=== PATIENT | female | born 1980 | race Caucasian/White ===

== ENCOUNTER 2019-09-08 17:23 | Emergency (ER) | payer OTHER, SELFPAY ==
--- NOTE | ~2019-09-08 | XR_ITS ---
EXAMINATION: XR ankle RT min 3V EXAM DATE: 09/08/2019 18:04 INDICATION: Initial encounter following injury, with pain of the right ankle. TECHNIQUE: Right ankle frontal, lateral and oblique projections obtained and reviewed. Comparison is made to prior examination from 10/26/2010. FINDINGS: The right ankle mortise appears intact. There are no acute fractures or dislocations iden tified. There is no subcutaneous gas. The soft tissue is unremarkable. There are no radiopaque fo reign bodies. IMPRESSION: No acute osseous findings. Reviewed, dictated and finalized at location A. IMPRESSION: No acute osseous findings.
--- NOTE | 2019-09-08 17:38 | ED.LOWEXIN ---
HPI - Extremity Injury (Lower) General Chief Complaint: Extremity Injury, Lower Stated Complaint: right foot pain Time Seen by Provider: 09/08/19 17:38 Source: patient and RN notes reviewed History of Present Illness HPI Narrative: Patient is a 39-year-old female that presents the urgent care with complaints of a right ankle injury. Patient states that she stepped over a gate on Sunday and believes that she rolled her ankle . Patient states that the pain and swelling started today after driving a significant amount of time. Patient has taken ibuprofen. No other acute complaints. No acute distress noted. Patient read the plan of care. Related Data Home Medications Medication Instructions Recorded Confirmed fluticasone furoate-vilanterol 1 inh INHALATION DAILY 05/13/19 09/08/19 [Breo Ellipta] gabapentin 300 mg TID 05/13/19 09/08/19 sertraline 100 mg DAILY 05/13/19 09/08/19 trazodone 150 mg HS 05/13/19 09/08/19 bupropion HCl 100 mg PO BID 09/08/19 09/08/19 Allergies Allergy/AdvReac Type Severity Reaction Status Date / Time amoxicillin Allergy Mild Rash Verified 09/08/19 17:45 cephalexin Allergy Mild Rash Verified 09/08/19 17:29 banana Allergy Unknown Itching Verified 09/08/19 17:45 latex Allergy Unknown Rash Verified 09/08/19 17:29 levofloxacin Allergy Unknown Rash Verified 09/08/19 17:29 venom-honey bee Allergy Unknown Anaphylaxis Verified 09/08/19 17:45 Review of Systems Review of Systems: Narrative: CONSTITUTIONAL: Denies fever, chills, or sweats. EYES: Denies visual changes, redness, or discharge. ENT: Denies rhinorrhea, congestion, sore throat, or otalgia. CARDIOVASCULAR: Denies chest pain, palpitations, or edema. RESPIRATORY: Denies cough or dyspnea. GASTROINTESTINAL: Denies abdominal pain, nausea, vomiting, or diarrhea. GENITOURINARY: Denies dysuria or hematuria. SKIN: Denies rash or itching. MUSCULOSKELETAL: Reports of right ankle pain and swelling NEUROLOGIC: Denies headache, numbness, or weakness. All other systems reviewed are negative, except as documented in HPI. [facility] Social History Social History Gender identity (if verbalized by the patient): Female Comments At the time of my signature, I reviewed and agree with the nursing past medical, surgical, social, and family history. There is no relevant family history pertinent to the patient complaint. Exam Narrative: Exam Narrative: GENERAL: This is a well-nourished, well-developed patient, in no apparent distress. HEAD: normocephalic, atraumatic. EYES: PERRL. Sclera clear/white. Vision is grossly intact. EARS: External ears normal NOSE: External nose normal with no obvious nasal discharge THROAT: Mucous membranes moist NECK: Neck supple SKIN: warm, intact with no suspicious lesions or rash, good texture and turgor. NEURO: awake, alert, and oriented to person, place and time. There were no obvious focal neurologic abnormalities. EXTREMITIES: Positive strong right pedal pulse with capillary refill less than 2 seconds. Mild swelling noted to the lateral malleolus and posterior lateral malleolus with mild pain with range of motion. No obvious deformity Course Vital Signs Vital signs: Vital Signs Temperature 97.8 F 09/08/19 17:40 Pulse Rate 94 09/08/19 17:40 Respiratory Rate 16 09/08/19 17:40 Blood Pressure 143/79 H 09/08/19 17:40 Pulse Oximetry 100 09/08/19 17:40 Temperature 97.8 F 09/08/19 17:40 Pulse Rate 94 09/08/19 17:40 Respiratory Rate 16 09/08/19 17:40 Blood Pressure 143/79 H 09/08/19 17:40 Pulse Oximetry 100 09/08/19 17:40 Reviewed?patient is informed that they may have pre-hypertension or hypertension based on a blood pressure reading in the department. I recommend the patient call the primary care provider listed on their discharge instructions or a physician of their choice this week to arrange follow-up for further evaluation of possible pre-hypertension or hypertension. MDM - Extremity Injury
[2019-09-08 17:40] VITALS: BP 143/79; PULSE 94; RESP 16; TEMP 36.6; O2SAT 100
== END 2019-09-08 18:37 | disposition home or self-care (01) ==
PROVIDERS: Emergency Provider Nurse Practitioner Family; PCP Physician Assistant
DX: S93.401A Sprain of unspecified ligament of right ankle, initial encounter (principal); S96.911A Strain of unspecified muscle and tendon at ankle and foot level, right foot, initial encounter; X50.9XXA Other and unspecified overexertion or strenuous movements or postures, initial encounter; F41.9 Anxiety disorder, unspecified; F32.9 Major depressive disorder, single episode, unspecified; R03.0 Elevated blood-pressure reading, without diagnosis of hypertension
CPT/HCPCS: 73610; 99213; G0463

== ENCOUNTER 2020-01-20 18:22 | Emergency (ER) | payer OTHER, SELFPAY ==
[2020-01-20 18:32] VITALS: BP 125/87; PULSE 114; RESP 18; TEMP 36.7; O2SAT 99
--- NOTE | 2020-01-20 18:45 | ED.GENADULT ---
HPI - General Adult General Chief complaint: Skin/Abscess/Foreign Body Stated complaint: Abd pain Time Seen by Provider: 01/20/20 18:40 Source: patient and RN notes reviewed Mode of arrival: ambulatory Limitations: no limitations History of Present Illness HPI narrative: 39-year-old female presents with concern for red, sore skin inside her navel. She reports mild tenderness to palpation above the navel. She denies fever, malaise, chills, drainage from the site. Reports a history of having a staph infection with subsequent sepsis near her clavicle. MD complaint: Rash Related Data Home Medications Medication Instructions Recorded Confirmed gabapentin [Neurontin] 300 mg PO TID 01/20/20 01/20/20 Allergies Allergy/AdvReac Type Severity Reaction Status Date / Time amoxicillin Allergy Mild Rash Verified 01/20/20 18:41 cephalexin Allergy Mild Rash Verified 01/20/20 18:41 banana Allergy Unknown Itching Verified 01/20/20 18:41 latex Allergy Unknown Rash Verified 01/20/20 18:41 levofloxacin Allergy Unknown Rash Verified 01/20/20 18:41 venom-honey bee Allergy Unknown Anaphylaxis Verified 01/20/20 18:41 Review of Systems Review of Systems: Narrative: CONSTITUTIONAL: Denies malaise, chills, sweats, or fever. CARDIOVASCULAR: Denies chest pain, palpitations RESPIRATORY: Denies cough or dyspnea. GASTROINTESTINAL: Denies abdominal pain, nausea, vomiting, diarrhea. Reports mild tenderness to palpation supraumbilical SKIN: Reports red, tender skin inside the navel MUSCULOSKELETAL: Denies myalgia. All systems reviewed & are unremarkable except as noted in HPI and below PMFSH Social History Social History Gender identity (if verbalized by the patient): Female Comments At time of signature, agree with nursing past medical, surgical, social and family history. There is no relevant family history pertinent to the presenting complaint Exam Narrative: Exam Narrative: GENERAL: Well-appearing, well-nourished, and in no acute distress. HEAD: Normocephalic EYES: PERRLA, conjunctivae clear ENT: Mucous membranes moist. NECK: Supple. CHEST: No respiratory distress. Speaks in full sentences. HEART: Regular rate and rhythm. ABDOMEN: Soft, nondistended, normal active bowel sounds, no palpable masses. Mild tenderness supraumbilical SKIN: Warm, dry. Erythema, mild excoriation inside the umbilicus NEURO: Alert and oriented x3. PSYCH: Normal mood and affect Course Course Emergency Course: Patient is aware of diagnosis, understands and agrees to treatment plan. Anticipatory guidance given. Patient agrees to follow-up as directed and is aware of reasons to seek care at the emergency department. Portions of this record may have been created with voice recognition software Vital Signs Vital signs: Vital Signs Temperature 98.1 F 01/20/20 18:32 Pulse Rate 114 H 01/20/20 18:32 Respiratory Rate 18 01/20/20 18:32 Blood Pressure 125/87 01/20/20 18:32 Pulse Oximetry 99 01/20/20 18:32 Temperature 98.1 F 01/20/20 18:32 Pulse Rate 114 H 01/20/20 18:32 Respiratory Rate 18 01/20/20 18:32 Blood Pressure 125/87 01/20/20 18:32 Pulse Oximetry 99 01/20/20 18:32 Reviewed. Patient has been instructed to follow up with her primary care provider within the next week regarding her elevated blood pressure today. Medical Decision Making MDM Narrative Medical decision making narrative: Exam findings show no acute concerns or changes; patient is non-toxic appearing and is in no distress. Patient is appropriate for outpatient treatment and follow-up. Vital Signs Vital Signs: Vital Signs Temperature 98.1 F 01/20/20 18:32 Pulse Rate 114 H 01/20/20 18:32 Respiratory Rate 18 01/20/20 18:32 Blood Pressure 125/87 01/20/20 18:32 Pulse Oximetry 99 01/20/20 18:32 Temperature 98.1 F 01/20/20 18:32 Pulse Rate 114 H 01/20/20 18:32 Respiratory Rate 18 01/20/20 18:32 Blood Pressure 125/87 01/20/20 18
== END 2020-01-20 18:56 | disposition home or self-care (01) ==
PROVIDERS: Emergency Provider Nurse Practitioner; PCP Physician Assistant
DX: B37.2 Candidiasis of skin and nail (principal); J45.909 Unspecified asthma, uncomplicated; F17.200 Nicotine dependence, unspecified, uncomplicated
CPT/HCPCS: 99213; G0463

== ENCOUNTER 2020-03-23 16:56 | Emergency (ER) | payer OTHER, SELFPAY ==
[2020-03-23 17:11] VITALS: BP 147/92; PULSE 85; RESP 16; TEMP 37.2; O2SAT 100
--- NOTE | 2020-03-23 17:37 | ED.GENADULT ---
HPI - General Adult General Chief complaint: Ear Stated complaint: left ear pain Source: patient Mode of arrival: ambulatory Limitations: no limitations History of Present Illness HPI narrative: Patient presents for evaluation of left-sided ear pain for the last 2 hours. She states that she initially experienced symptoms while at home. She feels like she is fluid in the ear . She has had some postnasal drainage as of late. She denies any hearing loss, tinnitus, fever, chills, sore throat, respiratory symptoms. She does smoke approximately half pack per day. She does have a history of methamphetamine abuse but has been sober for more than 1 year. No additional complaints or concerns. Related Data Home Medications Medication Instructions Recorded Confirmed fluticasone furoate-vilanterol 25 inh INHALATION DAILY 03/23/20 03/23/20 [Breo Ellipta] sertraline 50 mg PO TID 03/23/20 03/23/20 Allergies Allergy/AdvReac Type Severity Reaction Status Date / Time venom-honey bee Allergy Severe Anaphylaxis Verified 03/23/20 17:22 banana Allergy Intermediate Itching Verified 03/23/20 17:22 amoxicillin Allergy Mild Rash Verified 03/23/20 17:22 cephalexin Allergy Mild Rash Verified 03/23/20 17:22 latex Allergy Mild Rash Verified 03/23/20 17:22 levofloxacin Allergy Mild Rash Verified 03/23/20 17:22 Review of Systems Review of Systems: Narrative: CONSTITUTIONAL: Denies fever, chills, or sweats. EYES: Denies visual changes, redness, or discharge. ENT: Denies rhinorrhea, congestion, sore throat. Reports left-sided otalgia CARDIOVASCULAR: Denies chest pain, palpitations, or edema. RESPIRATORY: Denies cough or dyspnea. GASTROINTESTINAL: Denies abdominal pain, nausea, vomiting, or diarrhea. GENITOURINARY: Denies dysuria or hematuria. SKIN: Denies rash or itching. MUSCULOSKELETAL: Denies back pain, joint pain, or myalgia. NEUROLOGIC: Denies headache, numbness, dizziness, or weakness. PSYCHIATRIC: Denies anxiety or depression. [facility] Past Medical History Medical History Methamphetamine abuse Postoperative complication of skin involving drainage from surgical wound Tobacco use Surgical History Surgical History History of incision and drainage Family History Family History Father Diabetes mellitus Mother Breast cancer Social History Social History Smoking status: Current every day smoker Additional smoking assessment comments: 05/08 ppd Alcohol intake: current Alcohol use details: rarely Substance use: former Substance use type: methamphetamine Gender identity (if verbalized by the patient): Female Sexual Orientation (if Verbalized by the Patient): Straight or Heterosexual Spiritual care concerns: No Exam Narrative: Exam Narrative: GENERAL: Well-appearing, well-nourished, and in no acute distress. HEAD: Normocephalic, atraumatic. EYES: PERRLA and EOMI. ENT: Nares clear, no rhinorrhea or epistaxis. Mucous membranes moist. Oropharynx without tonsillar hypertrophy exudate or other lesions. Bilateral TMs pearly proctor nonbulging. Serous fluid noted behind left tympanic membrane NECK: Supple. No adenopathy or masses. No carotid bruits or JVD CHEST: Clear to auscultation. No respiratory distress. No wheezes rales or rhonchi HEART: Regular rate and rhythm. No murmur heard. Normal peripheral pulses. ABDOMEN: Soft, nontender, nondistended, normal active bowel sounds. EXTREMITIES: Normal range of motion. No edema. SKIN: Warm, dry, no rash. NEURO: No focal deficits. Alert and oriented x3. PSYCH: Normal mood and affect. Course Course Emergency Course: This is a 39-year-old female with a history of methamphetamine abuse, previously undergoing surgical wound drainage. She was able to achieve sobriety which she has maintained fo
== END 2020-03-23 17:50 | disposition home or self-care (01) ==
PROVIDERS: Emergency Provider Nurse Practitioner; PCP Physician Assistant
DX: H69.92 Unspecified Eustachian tube disorder, left ear (principal); F17.200 Nicotine dependence, unspecified, uncomplicated
CPT/HCPCS: 99213; G0463

== ENCOUNTER 2021-05-08 11:14 | Emergency (ER) | payer OTHER, SELFPAY ==
--- NOTE | 2021-05-08 11:19 | ED.URI ---
HPI - URI/Sore Throat General Chief Complaint: Upper Respiratory Infection Stated Complaint: cough Time Seen by Provider: 05/08/21 12:04 Source: patient and RN notes reviewed Mode of arrival: ambulatory Limitations: no limitations History of Present Illness HPI Narrative: 41-year-old female presents with concern for 4-day history of persistent cough, intermittent wheezing, body aches, cough, chills, shortness of breath and headache. Reports her daughter is flu positive and they share a bedroom. She denies any Covid exposure. MD elicited complaint: cough and sore throat Related Data Home Medications Medication Instructions Recorded Confirmed albuterol sulfate [ProAir HFA] INHALATION 05/08/21 bupropion HCl PO 05/08/21 Allergies Allergy/AdvReac Type Severity Reaction Status Date / Time venom-honey bee Allergy Severe Anaphylaxis Verified 03/23/20 17: banana Allergy Intermediate Itching Verified 03/23/20 17: amoxicillin Allergy Mild Rash Verified 03/23/20 17: cephalexin Allergy Mild Rash Verified 03/23/20 17: latex Allergy Mild Rash Verified 03/23/20 17:22 levofloxacin Allergy Mild Rash Verified 03/23/20 17:22 Review of Systems Review of Systems: CONSTITUTIONAL: Reports malaise, chills. Denies sweats, or fever. EYES: Denies visual changes, redness, or discharge. ENT: Reports rhinorrhea, congestion, ear pain. Denies sinus pain and sore throat. CARDIOVASCULAR: Denies chest pain, palpitations, or edema. RESPIRATORY: Reports cough, wheezing, dyspnea. GASTROINTESTINAL: Denies abdominal pain, vomiting, diarrhea. Reports nausea SKIN: Denies rash or itching. MUSCULOSKELETAL: Reports myalgia. NEUROLOGIC: Reports headache. All systems reviewed & are unremarkable except as noted in HPI and below PMFSH Past Medical History Medical History Methamphetamine abuse Postoperative complication of skin involving drainage from surgical wound Tobacco use Surgical History Surgical History History of incision and drainage Family History Family History Father Diabetes mellitus Mother Breast cancer Social History Social History Smoking status: Current every day smoker Additional smoking assessment comments: 1/2 ppd Alcohol intake: current Alcohol use details: rarely Substance use: former Substance use type: methamphetamine Gender identity (if verbalized by the patient): Female Sexual Orientation (if Verbalized by the Patient): Straight or Heterosexual Spiritual care concerns: No Comments At time of signature, agree with nursing past medical, surgical, social and family history. There is no relevant family history pertinent to the presenting complaint Exam Narrative: GENERAL: Well-appearing, well-nourished, and in no acute distress. HEAD: Normocephalic EYES: PERRLA, conjunctivae clear ENT: Nares clear, clear discharge. Mucous membranes moist. TM pearly proctor with dull light reflex bilaterally; no tragal tenderness. Oropharynx not erythematous without lesions. Tonsils not enlarged and without exudate, no drooling, no hoarseness, no trismus, uvula midline. NECK: Supple. No lymphadenopathy CHEST: Clear to auscultation, breath diminished on the right. No wheezing, rhonchi, rales, or stridor. No respiratory distress, speaks in full sentences. HEART: Regular rate and rhythm. No murmur heard. SKIN: Warm, dry, no rash. NEURO: Alert and oriented x3. PSYCH: Normal mood and affect Course Course Emergency Course: Patient is aware of diagnosis, understands and agrees to treatment plan. Anticipatory guidance given. Patient agrees to follow-up as directed and is aware of reasons to seek care at the emergency department. Portions of this record may have been created with voice recognition software Level of Care: Express Care Vi
[2021-05-08 11:37] VITALS: BP 118/72; PULSE 84; RESP 16; TEMP 36.4; O2SAT 100
[2021-05-08 11:38] VITALS: BP 118/72; PULSE 84; RESP 16; TEMP 36.4; O2SAT 100
== END 2021-05-08 12:15 | disposition home or self-care (01) ==
PROVIDERS: Emergency Provider Nurse Practitioner; PCP Physician Assistant
DX: J06.9 Acute upper respiratory infection, unspecified (principal); F17.200 Nicotine dependence, unspecified, uncomplicated
CPT/HCPCS: 87804; 99213; G0463

== ENCOUNTER 2022-05-23 16:20 | Emergency (ER) | payer OTHER, SELFPAY ==
--- NOTE | ~2022-05-23 | XR_ITS ---
EXAMINATION: XR hip RT min 3V w AP pelvis DATE: 05/23/2022 16:50 INDICATION: Right hip pain. TECHNIQUE: An anteroposterior view of the pelvis and 3 views of right hip were obtained. COMPARISON: None. FINDINGS: There is lumbar levocurvature and mild spondylosis. No fracture. Joint spaces are normal. T here is an os acetabuli on the right. Osteitis pubis is noted. IMPRESSION: 1. Normal hips. Reviewed, dictated and finalized at location A. [employer] IMPRESSION: 1. Normal hips.
--- NOTE | ~2022-05-23 | US_ITS ---
EXAMINATION: US venous doppler LE RT DATE: 05/23/2022 17:21 INDICATION: Right lower limb pain. TECHNIQUE: Grayscale ultrasound images without and with compression and Doppler ultrasound images of the right lower extremity veins were obtained. COMPARISON: None. FINDINGS: The visualized portions of right common femoral vein, profunda (deep) femoral vein, femoral vein, pop liteal vein, peroneal veins, posterior tibial veins, and greater saphenous vein outflow are patent. IMPRESSION: 1. No deep venous thrombosis. Reviewed, dictated and finalized at location A. [employer]
[2022-05-23 16:24] VITALS: BP 152/84; PULSE 100; RESP 16; TEMP 36.8; O2SAT 100
--- NOTE | 2022-05-23 16:44 | ED.EXTPRO ---
HPI - Extremity Problem General Chief complaint: Extremity Injury, Lower Stated complaint: hip pain for a month, swollen right leg Time Seen by Provider: 05/23/22 16:34 History of Present Illness HPI Narrative: 42-year-old female presenting with pain to her right hip for the last month, she denies any recent injury, she came in here because she noticed that her whole right lower extremity seemed to be swollen. No fevers or chills, has been taking naproxen with some relief. Able to bear weight without issues, able to flex/extend hip but not past 45 degrees without pain. Related Data Home Medications Medication Instructions Recorded Confirmed albuterol sulfate 90 mcg/actuation inhalation 05/08/21 aerosol inhaler (ProAir HFA) bupropion HCl 100 mg tablet PO 05/08/21 Allergies Allergy/AdvReac Type Severity Reaction Status Date / Time venom-honey bee Allergy Severe Anaphylaxis Verified 03/23/20 17:22 banana Allergy Intermediate Itching Verified 03/23/20 17:22 amoxicillin Allergy Mild Rash Verified 03/23/20 17:22 cephalexin Allergy Mild Rash Verified 03/23/20 17:22 latex Allergy Mild Rash Verified 03/23/20 17:22 levofloxacin Allergy Mild Rash Verified 03/23/20 17:22 Review of Systems Review of Systems: CONST: No fever. HEENT: No sore throat C/V: No chest pain RESP: No cough GI: No nausea or vomiting : No dysuria. M/S: Right hip pain and right right lower extremity swelling SKIN: No rash. NEURO: [No headache or focal numbness or weakness] PSYCH: [No depression] PMFSH Past Medical History Medical History Methamphetamine abuse Postoperative complication of skin involving drainage from surgical wound Tobacco use Surgical History Surgical History History of incision and drainage Family History Family History Father Diabetes mellitus Mother Breast cancer Social History Social History Smoking status: Current every day smoker Additional smoking assessment comments: 1/2 ppd Alcohol intake: current Alcohol use details: rarely Substance use: former Substance use type: methamphetamine Gender identity (if verbalized by the patient): Female Sexual Orientation (if Verbalized by the Patient): Straight or Heterosexual Spiritual care concerns: No Exam Narrative: EXAMINATION OF ORGAN SYSTEMS/BODY AREAS: Constitutional: Vital signs per nursing GENERAL:[No acute distress, non-toxic appearing.] HEAD: Normal with no signs of head trauma. EYES: EOMI, conjunctiva normal ENT: Hearing grossly intact LUNGS: Nonlabored breathing. HEART: [Regular rate and rhythm] ABD: [Soft], [nontender to palpation] EXT: Normal painless passive range of motion, no overlying skin changes, no real tenderness to palpation of hip, but some pain with flexion past 60 degrees; slight swelling of RLE/ankle compared to left. Able to ambulate and bear weight. SKIN: [No rashes or lesions.] NEURO: [Alert and oriented x 3. No gross focal sensory or strength deficits.] PSYCH: Normal affect Course Vital Signs Vital signs: Vital Signs Temperature 98.2 F 05/23/22 16:24 Pulse Rate 100 05/23/22 16:24 Respiratory Rate 16 05/23/22 16:24 Blood Pressure 152/84 H 05/23/22 16:24 Pulse Oximetry 100 05/23/22 16:24 Oxygen Delivery Room Air 05/23/22 16:24 Temperature 98.2 F 05/23/22 16:24 Pulse Rate 100 05/23/22 16:24 Respiratory Rate 16 05/23/22 16:24 Blood Pressure 152/84 H 05/23/22 16:24 Pulse Oximetry 100 05/23/22 16:24 Oxygen Delivery Room Air 05/23/22 16:24 MDM - Extremity (Nontraumatic) MDM Narrative Medical decision making narrative: Patient presents with right hip pain ongoing for the last month, with swelling in the right lower extremity, vital signs stable, on she is well-appearing, bearing weight and ambulating without issue
[2022-05-23 17:09] LABS: Basophils Absolute Auto 0.1 K/mm3 (0.0-0.1); Eosinophils Absolute Auto 0.4 K/mm3 (0-0.3); Eosinophils Percent Auto 4.4 % (0-4.4); Hematocrit 39.5 % (37.0-47.0); Hemoglobin 12.8 g/dL (12.0-15.0); Immature Granulocyte Absolute 0.02 K/mm3 (0.00-0.031); Immature Granulocyte Percent A 0.3 % (0-0.5); Lymphocytes Absolute Auto 2.24 K/mm3 (0.9-3.2); Lymphocytes Percent Auto 28.2 % (18.3-44.2); Mean Corpuscular HGB Conc 32.4 g/dl (32-36); Mean Corpuscular Hemoglobin 31.6 pg (26-34); Mean Corpuscular Volume 97.5 fl (80-100); Mean Platelet Volume 9.3 fl (7.4-10.4); Monocytes Absolute Auto 0.5 K/mm3 (0.1-0.6); Monocytes Percent Auto 6.2 % (2.6-8.5); Neutrophils Absolute Auto 4.8 K/mm3 (1.3-6.7); Neutrophils Percent Auto 59.9 % (45.5-73.1); Platelet Count Result 342 k/mm3 (150-375); Red Blood Count 4.05 M/mm3 (4.2-5.4); Red Cell Distribution Width 12.8 % (11.5-14.5); White Blood Count 7.9 K/mm3 (4.5-10.0)
[2022-05-23 17:19] LABS: INR 0.9; Partial Thromboplastin Time 27.5 SECONDS (22.3-36.8); Prothrombin Time 12.2 Seconds (11.1-14.7)
[2022-05-23 18:29] VITALS: BP 126/84; PULSE 100; RESP 15; O2SAT 100
== END 2022-05-23 18:30 | disposition home or self-care (01) ==
LOC: ANHED 17:53
PROVIDERS: Emergency Provider Emergency Medicine; PCP Physician Assistant
DX: M25.551 Pain in right hip (principal); F17.210 Nicotine dependence, cigarettes, uncomplicated
CPT/HCPCS: 36415; 73502; 85025; 85610; 85730; 93971; 99284

== ENCOUNTER 2023-05-01 15:26 | Emergency (ER) | payer OTHER, SELFPAY ==
[2023-05-01 15:49] VITALS: BP 124/98; PULSE 109; RESP 16; TEMP 36.2; O2SAT 98
--- NOTE | 2023-05-01 16:16 | ED.URI ---
HPI - URI/Sore Throat General Chief Complaint: Upper Respiratory Infection Stated Complaint: fever,bodyaches,tired,headache Time Seen by Provider: 05/01/23 16:16 Source: patient Mode of arrival: ambulatory Limitations: no limitations History of Present Illness HPI Narrative: 43-year-old female presents with complaint of headache, fatigue, body aches, chills for 4 days. Afebrile Shabbir reports mild cough. No chest pain or shortness breath. All systems reviewed and negative except as noted above. Related Data Allergies Allergy/AdvReac Type Severity Reaction Status Date / Time venom-honey bee Allergy Severe Anaphylaxis Verified 05/01/23 15:59 banana Allergy Intermediate Itching Verified 05/01/23 15:59 amoxicillin Allergy Mild Rash Verified 05/01/23 15:59 cephalexin Allergy Mild Rash Verified 05/01/23 15:59 latex Allergy Mild Rash Verified 05/01/23 15:59 levofloxacin Allergy Mild Rash Verified 05/01/23 15:59 Review of Systems Review of Systems: CONSTITUTIONAL: Denies fever, chills, or sweats. Reports fatigue. EYES: Denies visual changes, redness, or discharge. ENT: Denies rhinorrhea, congestion, sore throat, or otalgia. CARDIOVASCULAR: Denies chest pain, palpitations, or edema. RESPIRATORY: Reports cough. Denies dyspnea. GASTROINTESTINAL: Denies abdominal pain, nausea, vomiting, or diarrhea. GENITOURINARY: Denies dysuria or hematuria. SKIN: Denies rash or itching. MUSCULOSKELETAL: Denies back pain, joint pain. Reportsmyalgia. NEUROLOGIC: reports headache. Denies numbness, or weakness. PSYCHIATRIC: Denies anxiety or depression. All other systems reviewed are negative, except as documented in HPI. [facility] Past Medical History Medical History Methamphetamine abuse Postoperative complication of skin involving drainage from surgical wound Tobacco use Surgical History Surgical History History of incision and drainage Family History Family History Father Diabetes mellitus Mother Breast cancer Social History Social History Smoking status: Current every day smoker Additional smoking assessment comments: 1/2 ppd Alcohol intake: current Alcohol use details: rarely Substance use: former Substance use type: methamphetamine Gender identity (if verbalized by the patient): Female Sexual Orientation (if Verbalized by the Patient): Straight or Heterosexual Spiritual care concerns: No Comments At time of signature, agree with nursing past medical, surgical, social and family history. There is no relevant family history pertinent to the presenting complaint. Exam Narrative: GENERAL: This is a well-nourished, well-developed patient, in no apparent distress. HEAD: normocephalic, atraumatic. EYES: PERRL. Sclera clear/white. Vision is grossly intact. EARS: External ears normal, auditory canals clear and without drainage, TMs normal without perforation. Hearing grossly intact. NOSE: External nose normal with clear nasal drainage, nares without redness, no rhinorrhea. THROAT: Mucous membranes moist, posterior pharynx clear. NECK: Neck supple, non-tender without lymphadenopathy, masses or thyromegaly. CARDIOVASCULAR: Regular rate and rhythm without murmurs, gallops, or rubs. RESPIRATORY: Clear to auscultation. Breath sounds equal bilaterally. No wheezes, rales, or rhonchi. SKIN: warm, Dry, intact with no suspicious lesions or rash, good texture and turgor. NEURO: awake, alert, and oriented to person, place and time. There were no obvious focal neurologic abnormalities. EXTREMITIES: No joint tenderness, effusion, or edema noted. Course Course Level of Care: Express Care Visit Vital Signs Vital signs: Vital Signs Temperature 36.2 C L 05/01/23 15:49 Pulse Rate 109 H 05/01/23 15:49 Respiratory Rate 16 05/01/23 15:49 Blood Pressur
== END 2023-05-01 16:31 | disposition home or self-care (01) ==
PROVIDERS: Emergency Provider Nurse Practitioner Family; PCP Physician Assistant
DX: U07.1 COVID-19 (principal); F17.210 Nicotine dependence, cigarettes, uncomplicated
CPT/HCPCS: 87426; 87804; 99213; C9803; G0463

== ENCOUNTER 2023-05-18 17:44 | Emergency (ER) | payer OTHER, SELFPAY ==
--- NOTE | 2023-05-18 17:45 | ED.URI ---
HPI - URI/Sore Throat General Chief Complaint: Upper Respiratory Infection Stated Complaint: cough Time Seen by Provider: 05/18/23 17:44 Source: patient Mode of arrival: ambulatory Limitations: no limitations History of Present Illness HPI Narrative: Patient is a 43-year-old female who presents with 1 week of worsening cough and post nasal drip. Patient was diagnosed with COVID the day after Joana and states she had a few days in between then and now where she felt normal. Patient has not taken anything [id number]. States she was taking Zyrtec and Flonase daily but has not taken either in the last 3 weeks. Denies fever, chills, nausea, vomiting, diarrhea. Related Data Home Medications Medication Instructions Recorded Confirmed budesonide-formoterol HFA 160 1 inh inhalation DIRECTED 05/18/23 05/18/23 mcg-4.5 mcg/actuation aerosol inhaler (Symbicort) Allergies Allergy/AdvReac Type Severity Reaction Status Date / Time venom-honey bee Allergy Severe Anaphylaxis Verified 05/01/23 15:59 banana Allergy Intermediate Itching Verified 05/01/23 15:59 amoxicillin Allergy Mild Rash Verified 05/01/23 15:59 cephalexin Allergy Mild Rash Verified 05/01/23 15:59 latex Allergy Mild Rash Verified 05/01/23 15:59 levofloxacin Allergy Mild Rash Verified 05/01/23 15:59 Review of Systems Review of Systems: All systems reviewed & are unremarkable except as noted in HPI and below Constitutional: Constitutional: Denies body ache(s), Denies chills, Denies fatigue, Denies fever(s), Denies headache(s), Denies malaise and Denies weakness Eyes: Eyes: Denies blurry vision, Denies itchy eyes and Denies loss of vision ENT: Denies otalgia, Denies headache(s), Reports nasal congestion, Denies sinus pain and Denies sore throat Cardiovascular: Cardiovascular: Denies chest pain, Denies irregular heart rhythm and Denies dyspnea Respiratory: Respiratory: Reports cough and Denies dyspnea Gastrointestinal: Gastrointestinal: Denies abdominal pain, Denies diarrhea, Denies nausea and Denies vomiting Musculoskeletal: Musculoskeletal: Denies back pain, Denies myalgias and Denies arthralgias Integumentary/Breasts: Skin/Breast: Denies pruritus and Denies rash Neurologic: Denies headache(s), Denies loss of vision and Denies weakness Psychiatric: Psychiatric: Reports no additional psychiatric complaints Endocrine: Endocrine: Denies fatigue Allergic/Immunologic: Allergic/Immunologic: Denies itchy eyes PMFSH Past Medical History Medical History Methamphetamine abuse Postoperative complication of skin involving drainage from surgical wound Tobacco use Surgical History Surgical History History of incision and drainage Family History Family History Father Diabetes mellitus Mother Breast cancer Social History Social History Smoking status: Current every day smoker Additional smoking assessment comments: 1/2 ppd Alcohol intake: current Alcohol use details: rarely Substance use: former Substance use type: methamphetamine Gender identity (if verbalized by the patient): Female Sexual Orientation (if Verbalized by the Patient): Straight or Heterosexual Spiritual care concerns: No Comments At time of signature, agree with nursing past medical, surgical, social and family history. There is no relevant family history pertinent to the presenting complaint. Exam Const: General: cooperative, healthy appearing, comfortable, no acute distress and well nourished Nutritional Appearance: well nourished Orientation/consciousness: patient oriented x3 Limitations: no limitations HENMT: Head: normal to inspection, normocephalic and atraumatic Ears: hearing grossly normal bilaterally, external ears normal, TM's normal bilaterally, EAC's normal and no periauri
[2023-05-18 17:54] VITALS: BP 153/90; PULSE 109; RESP 16; TEMP 36.7; O2SAT 97
[2023-05-18 17:55] VITALS: BP 153/90; PULSE 109; RESP 16; TEMP 36.7; O2SAT 97
== END 2023-05-18 18:18 | disposition home or self-care (01) ==
PROVIDERS: Emergency Provider Nurse Practitioner Family; PCP Physician Assistant
DX: J40 Bronchitis, not specified as acute or chronic (principal); F17.200 Nicotine dependence, unspecified, uncomplicated; Z79.899 Other long term (current) drug therapy
CPT/HCPCS: 99213; G0463

== ENCOUNTER 2023-06-10 11:17 | Emergency (ER) | payer SELFPAY ==
--- NOTE | ~2023-06-10 | XR_ITS ---
EXAMINATION: XR chest 2V DATE: 06/10/2023 11:56 INDICATION: Cough TECHNIQUE: Frontal and lateral views of the chest are obtained COMPARISON: 03/21/2016 FINDINGS: There are minimal airspace opacities of the right lung base. No pleural effusion or pneumot horax. The cardiomediastinal silhouette is normal. There are 40 degrees of thoracic dextroscoliosis. IMPRESSION: 1. Minimal right basilar airspace opacity, consistent with atelectasis versus pneumonia. Reviewed, dictated and finalized at location A. ER FABRICATOR IMPRESSION: 1. Minimal right basilar airspace opacity, consistent with atelectasis versus p neumonia.
[2023-06-10 11:45] VITALS: BP 155/104; PULSE 111; RESP 18; TEMP 37.1; O2SAT 100
--- NOTE | 2023-06-10 13:05 | ED.GENADULT ---
HPI - General Adult General Chief complaint: Upper Respiratory Infection Stated complaint: Cough Source: patient Mode of arrival: ambulatory Limitations: no limitations History of Present Illness HPI narrative: Patient presents for evaluation of sick symptoms for last 3 weeks. She has experienced a cough, shortness of breath, throat irritation 2/2 frequent coughing, wheezing, nausea and episodes of Vomiting during coughing episodes. No recent sick contacts to her knowledge. She has an underlying history of asthma. She needs a new albuterol inhaler. She has been taking some [id number] cough and cold medicine for her symptoms. 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 She has not used meth in three years. Related Data Home Medications Medication Instructions Recorded Confirmed budesonide-formoterol HFA 160 1 inh inhalation DIRECTED 05/18/23 06/10/23 mcg-4.5 mcg/actuation aerosol inhaler (Symbicort) Allergies Allergy/AdvReac Type Severity Reaction Status Date / Time venom-honey bee Allergy Severe Anaphylaxis Verified 06/10/23 12:54 banana Allergy Intermediate Itching Verified 06/10/23 12:54 amoxicillin Allergy Mild Rash Verified 06/10/23 12:54 cephalexin Allergy Mild Rash Verified 06/10/23 12:54 latex Allergy Mild Rash Verified 06/10/23 12:54 levofloxacin Allergy Mild Rash Verified 06/10/23 12:54 Review of Systems Review of Systems: CONSTITUTIONAL: Denies fever, chills, or sweats. EYES: Denies visual changes, redness, or discharge. ENT: Reports sore throat that she attributes to frequent coughing. Denies rhinorrhea, congestion, or otalgia. CARDIOVASCULAR: Denies chest pain, palpitations, or edema. RESPIRATORY: Reports cough, shortness of breath, wheezing. GASTROINTESTINAL: Reports vomiting during coughing episodes. Denies diarrhea GENITOURINARY: Denies dysuria or hematuria. SKIN: Denies rash or itching. MUSCULOSKELETAL: Denies back pain, joint pain, or myalgia. NEUROLOGIC: Denies headache, numbness, dizziness, or weakness. PSYCHIATRIC: Denies anxiety or depression. [facility] Past Medical History Medical History Methamphetamine abuse Postoperative complication of skin involving drainage from surgical wound Tobacco use Surgical History Surgical History History of incision and drainage Family History Family History Father Diabetes mellitus Mother Breast cancer Social History Social History Smoking status: Current every day smoker Additional smoking assessment comments: 05/08 ppd Alcohol intake: current Alcohol use details: rarely Substance use: former Substance use type: methamphetamine Gender identity (if verbalized by the patient): Female Sexual Orientation (if Verbalized by the Patient): Straight or Heterosexual Spiritual care concerns: No Exam Narrative: GENERAL: Well-appearing, well-nourished, and in no acute distress. HEAD: Normocephalic, atraumatic. EYES: PERRLA and EOMI. ENT: Nares clear, no rhinorrhea or epistaxis. Mucous membranes moist. Oropharynx without tonsillar hypertrophy exudate or other lesions. Bilateral TMs pearly proctor nonbulging NECK: Supple. No adenopathy or masses. No carotid bruits or JVD CHEST: Lung sounds bilaterally diminished. Cough present on exam HEART: Regular rate and rhythm. No murmur heard. Normal peripheral pulses. ABDOMEN: Soft, nontender, nondistended, normal active bowel sounds. EXTREMITIES: Normal range of motion. No edema. SKIN: Warm, dry, no rash. NEURO: No focal deficits. Alert and oriented x3. PSYCH: Normal mood and affect. Course Course Emergency Course: This is a 43 year old female who presented for evaluation of sick symptoms. Chest x-ray concerning for pneumonia. She
== END 2023-06-10 13:10 | disposition home or self-care (01) ==
PROVIDERS: Emergency Provider Nurse Practitioner; PCP Physician Assistant
DX: J18.9 Pneumonia, unspecified organism (principal); Z20.822 Contact with and (suspected) exposure to COVID-19; F17.200 Nicotine dependence, unspecified, uncomplicated; J45.909 Unspecified asthma, uncomplicated
CPT/HCPCS: 71046; 87081; 87426; 87804; 87880; 99213; G0463

== ENCOUNTER 2023-07-08 01:15 | Emergency (ER) | payer SELFPAY ==
[2023-07-08] VITALS (14 sets, daily range): BP systolic 66–143; BP diastolic 44–109; PULSE 71–124; RESP 12–26; TEMP 36.3; O2SAT 98–100
--- NOTE | ~2023-07-08 | CT_ITS ---
EXAMINATION: CTA chest PE protocol DATE: 07/08/2023 04:12 INDICATION: Shortness of breath. TECHNIQUE: Computed tomography angiography (CTA) of the chest was performed with 100 mL Omnipaque-350 intravenous contrast timed to evaluate the pulmonary arteries. Coronal maximum intensity projection 3D-reconstructions were created by the technologist. Automated exposure control and iterative reconst ruction technique were employed. The dose-length product was 854.96 mGy-cm. COMPARISON: 07/08/2023 FINDINGS: The lungs demonstrate mild atelectasis. There is a 4 mm nodule at the minor fissure, likely benign. No pleural effusion. The heart size is normal. No pericardial effusion. There is no pulmonar y embolus. There is an old healed fracture of right clavicle. There is thoracic dextroscoliosis and m ild spondylosis. IMPRESSION: 1. No pulmonary embolus. Reviewed, dictated and finalized at location A. LYST OPERATOR CHIEF IMPRESSION: 1. No pulmonary embolus.
--- NOTE | ~2023-07-08 | XR_ITS ---
EXAMINATION: XR chest 1V portable DATE: 07/08/2023 02:24 INDICATION: Shortness of breath. Cough. TECHNIQUE: A single frontal view of the chest was obtained. COMPARISON: Chest 2 views 06/10/2023 FINDINGS: There is no pneumonia, pleural effusion, or pneumothorax. The heart size is normal. IMPRESSION: 1. No acute cardiopulmonary disease. Reviewed, dictated and finalized at location A. ETT MACHINE OPERATOR HELPER
--- NOTE | 2023-07-08 01:38 | ECG_ITS ---
Measurements Intervals [place] Rate: 114 P: 39 FL: 117 QRS: 21 QRSD: 86 T: 51 QT: 311 QTc: 429 Interpretive Statements SINUS TACHYCARDIA WITH SHORT FL INTERVAL POSSIBLE LEFT ATRIAL ENLARGEMENT BASELINE ARTIFACT- I, II, III, AVR, AVL, AVF, V1-V6 ABNORMAL ECG NO PREVIOUS ECG AVAILABLE FOR COMPARISON Electronically Signed On 07-08-2023 7:05:22 ACTIVITIES OFFICER by Placido Franco D.O.
[2023-07-08] MEDS: MORPHINE SULFATE (*CRX) 4 MG/ML INJ IV PUSH (02:22)
[2023-07-08 02:26] LABS: Basophils Absolute Auto 0.1 K/mm3 (0.0-0.1); Eosinophils Absolute Auto 0.7 K/mm3 (0-0.3); Eosinophils Percent Auto 6.8 % (0-4.4); Hematocrit 39.8 % (37.0-47.0); Hemoglobin 12.9 g/dL (12.0-15.0); Immature Granulocyte Absolute 0.03 K/mm3 (0.00-0.031); Immature Granulocyte Percent A 0.3 % (0-0.5); Lymphocytes Absolute Auto 2.29 K/mm3 (0.9-3.2); Lymphocytes Percent Auto 23.9 % (18.3-44.2); Mean Corpuscular HGB Conc 32.4 g/dl (32-36); Mean Corpuscular Volume 95.7 fl (80-100); Mean Platelet Volume 8.9 fl (7.4-10.4); Monocytes Absolute Auto 0.6 K/mm3 (0.1-0.6); Monocytes Percent Auto 6.5 % (2.6-8.5); Neutrophils Absolute Auto 5.9 K/mm3 (1.3-6.7); Neutrophils Percent Auto 61.5 % (45.5-73.1); Platelet Count Result 384 k/mm3 (150-375); Red Blood Count 4.16 M/mm3 (4.2-5.4); White Blood Count 9.6 K/mm3 (4.5-10.0)
[2023-07-08 02:36] LABS: Prothrombin Time 13.1 Seconds (11.1-14.7)
[2023-07-08 02:37] LABS: Partial Thromboplastin Time 29.4 SECONDS (22.3-36.8)
[2023-07-08 02:41] LABS: Lactic Acid Reflex 1.2 mmol/L (0.7-2.0)
[2023-07-08 02:41] LABS: Appearance Urine Clear (Clear); Bilirubin Urine Negative (Negative); Blood Urine Negative (Negative); Color Urine Yellow (Yellow); Glucose Urine UA Negative (Negative); Ketones Urine Negative (Negative); Leukocyte Esterase Ur Negative LEU/UL (Negative); Nitrate Urine Negative (Negative); Protein Urine Negative (Negative); Specific Grav Ur 1.008 (1.001-1.035); Urobilinogen Urine 0.2 mg/dL (<2.0); pH Urine 5.5 (5.0-9.0)
[2023-07-08 02:43] LABS: Alanine Aminotransferase 37 U/L (6-35); Albumin Level 4.3 g/dL (3.5-5.1); Alkaline Phosphatase 78 U/L (38-126); Anion Gap 10 mmol/L (8-16); Aspartate Amino Transferase 42 U/L (14-36); Bilirubin,Total 0.3 mg/dL (0.2-1.3); Blood Urea Nitrogen 10 mg/dL (7-17); Calcium 9.4 mg/dL (8.4-10.2); Carbon Dioxide 22 mmol/L (22-30); Chloride 107 mmol/L (98-107); Estimated CRCL calculation 110 ml/min; Estimated Glomerular Filt Rate > 60; Glucose 109 mg/dL (65-110); Lipase 63 U/L (23-300); Sodium 139 mmol/L (137-145)
--- NOTE | 2023-07-08 02:44 | PC.NURSE ---
Pt began to c/o nausea and feeling flushed after morphine administration. This RN exited room to inform EDP sari. This RN received VORB for 4mg IVP Zofran. This RN entered room after pulling medication from [facility], to find pt with family at bedside attempting to wake pt up, with snoring respirations and unresponsive to sternal rub by this RN. EDP called to bedside, who gave VORB for Narcan administration. Episode lasted approx 30 seconds, then pt became responsive, A&Ox4, stating I thought i just fell asleep . Per VORB EDP Sari, no narcan needed.
[2023-07-08 02:47] LABS: Add Urine Microscopic? NO
[2023-07-08 02:53] LABS: NT Pro B Type Natriuretic Pept 64 pg/mL (19.9-100); Troponin I < 0.012 ng/mL (0.000-0.034)
[2023-07-08 02:58] LABS: Procalcitonin 0.1 ng/mL
--- NOTE | 2023-07-08 02:58 | ED.GENADULT ---
HPI - General Adult General Chief complaint: Recheck/Abnormal Lab/Rx Stated complaint: wants second opinion/right side pain Time Seen by Provider: 07/08/23 01:46 History of Present Illness HPI narrative: Patient is a 43-year-old female who presents emergency department with chief complaint of chest discomfort and shortness of breath. The patient reports she has pain in the right side of her chest patient reports that the pain has been getting worse after area she has been diagnosed with pneumonia was initially treated with doxycycline steroids and then subsequently was treated with Zithromax by her primary care provider patient reports she has prior history of latent TB and also reports that she has had an abscess before in her lungs and also chest wall the patient does have prior history of substance abuse with last IV drug use approximately 3 years ago Related Data Home Medications Medication Instructions Recorded Confirmed budesonide-formoterol HFA 160 1 inh inhalation DIRECTED 05/18/23 06/10/23 mcg-4.5 mcg/actuation aerosol inhaler (Symbicort) Allergies Allergy/AdvReac Type Severity Reaction Status Date / Time venom-honey bee Allergy Severe Anaphylaxis Verified 06/10/23 12:54 banana Allergy Intermediate Itching Verified 06/10/23 12:54 amoxicillin Allergy Mild Rash Verified 06/10/23 12:54 cephalexin Allergy Mild Rash Verified 06/10/23 12:54 latex Allergy Mild Rash Verified 06/10/23 12:54 levofloxacin Allergy Mild Rash Verified 06/10/23 12:54 morphine AdvReac Hypotension Verified 07/08/23 04:22 Review of Systems Review of Systems: A 10 system review of systems was completed on the patient and is negative except for what is stated in the HPI. Nursing and ancillary documentation was reviewed. PMFSH Past Medical History Medical History Methamphetamine abuse Postoperative complication of skin involving drainage from surgical wound Tobacco use Surgical History Surgical History History of incision and drainage Family History Family History Father Diabetes mellitus Mother Breast cancer Social History Social History Smoking status: Current every day smoker Additional smoking assessment comments: 1/2 ppd Alcohol intake: current Alcohol use details: rarely Substance use: former Substance use type: methamphetamine Gender identity (if verbalized by the patient): Female Sexual Orientation (if Verbalized by the Patient): Straight or Heterosexual Spiritual care concerns: No Exam Narrative: GENERAL: Ill-appearing, well-nourished, and in no acute distress. HEAD: Normocephalic, atraumatic. EYES: PERRLA and EOMI. ENT: Nares clear, no rhinorrhea or epistaxis. Mucous membranes moist. NECK: Supple. CHEST: Clear to auscultation. No respiratory distress. HEART: Regular rate and rhythm. No murmur heard. Normal peripheral pulses. ABDOMEN: Soft, nontender, nondistended, normal active bowel sounds. EXTREMITIES: Normal range of motion. No edema. SKIN: Warm, dry, no rash. NEURO: No focal deficits. Alert and oriented x3. PSYCH: Normal mood and affect. Course Vital Signs Vital signs: Vital Signs Temperature 36.3 C L 07/08/23 01:17 Pulse Rate 124 H 07/08/23 01:17 Respiratory Rate 22 H 07/08/23 01:17 Blood Pressure 140/109 H 07/08/23 01:17 Pulse Oximetry 99 07/08/23 01:17 Oxygen Delivery Room Air 07/08/23 01:17 Temperature 36.3 C L 07/08/23 01:17 Pulse Rate 92 07/08/23 04:45 Respiratory Rate 20 07/08/23 04:45 Blood Pressure 111/71 07/08/23 04:45 Pulse Oximetry 100 07/08/23 04:45 Oxygen Delivery Nasal Cannula 07/08/23 02:44 Oxygen Flow Rate 2 07/08/23 02:44 Medical Decision Making [facility] Narrative Medical decision making narrative: Differentia
[2023-07-08 03:02] LABS: Influenza A QL RT-PCR Negative (Negative); Influenza B QL RT-PCR Negative (Negative); RSV RNA, RT-PCR Negative (Negative); SARS-CoV-2 RNA PCR Negative (Negative)
[2023-07-08] MEDS: SODIUM CHLORIDE 0.9% IV 1,000 ML 999 ML (03:07)
--- NOTE | 2023-07-08 04:01 | PC.NURSE ---
Pt to CT via stretcher at this time. Alert and upright on stretcher during transport out of ED.
== END 2023-07-08 06:02 | disposition home or self-care (01) ==
PROVIDERS: Emergency Provider Emergency Medicine; PCP Physician Assistant
DX: J40 Bronchitis, not specified as acute or chronic (principal); Z20.822 Contact with and (suspected) exposure to COVID-19; F17.210 Nicotine dependence, cigarettes, uncomplicated; Z22.7 Latent tuberculosis; Z87.01 Personal history of pneumonia (recurrent); R00.0 Tachycardia, unspecified; R94.31 Abnormal electrocardiogram [ECG] [EKG]
CPT/HCPCS: 36415; 71045; 71275; 80053; 81003; 83605; 83690; 83735; 83880; 84145; 84484; 85025; 85610; 85730; 87040; 87637; 93005; 96361; 96374; 99284; J2270; J2310; J7030; Q9967

== ENCOUNTER 2024-05-05 16:59 | Emergency (ER) | payer SELFPAY ==
[2024-05-05 17:04] VITALS: BP 155/94; PULSE 109; RESP 16; TEMP 36.7; O2SAT 100
--- NOTE | 2024-05-05 17:51 | ED_ITS ---
HPI - URI/Sore Throat General Chief Complaint: Upper Respiratory Infection Stated Complaint: Cough Time Seen by Provider: 05/05/24 17:52 Source: patient, RN notes reviewed and old records reviewed Mode of arrival: ambulatory Limitations: no limitations History of Present Illness HPI Narrative: Patient presents with complaints of 3 days of nausea, vomiting, diarrhea. She reports that symptoms have begun to improve today's. She states that at onset she did have fever and abdominal cramping. She reports that fever has subsided as well as the cramping. Says that she has only had 1 episode of vomiting today. A couple episodes of diarrhea. Says this is much better than she has been the past 2 days. She reports that she has been trying to make sure she stays hydrated, does have decreased appetite. Patient reports a history of asthma. She is requesting a refill on albuterol inhaler since she is hearing Related Data Home Medications ?Medication ?Instructions ?Recorded ?Confirmed ?Last Taken ?Type budesonide-formoterol HFA 160 1 inh inhalation DIRECTED 05/18/23 06/10/23 Unknown History mcg-4.5 mcg/actuation aerosol inhaler (Symbicort) Allergies Allergy/AdvReac Type Severity Reaction Status Date / Time venom-honey bee Allergy Severe Anaphylaxis Verified 05/05/24 17:03 banana Allergy Intermediate Itching Verified 05/05/24 17:03 amoxicillin Allergy Mild Rash Verified 05/05/24 17:03 cephalexin Allergy Mild Rash Verified 05/05/24 17:03 latex Allergy Mild Rash Verified 05/05/24 17:03 levofloxacin Allergy Mild Rash Verified 05/05/24 17:03 morphine AdvReac Hypotension Verified 05/05/24 17:03 Review of Systems Review of Systems: All systems reviewed & are unremarkable except as noted in HPI and below Constitutional: Constitutional: Reports no additional constitutional complaints and Reports body ache(s) ENT: Reports system reviewed and no additional complaints, except as documented Cardiovascular: Cardiovascular: Reports no additional cardiovascular complaints Respiratory: Respiratory: Reports no additional respiratory complaints Gastrointestinal: Gastrointestinal: Reports no additional gastrointestinal complaints, Reports GI cramping, Reports diarrhea, Reports nausea and Reports vomiting PMFSH Past Medical History Medical History Methamphetamine abuse Postoperative complication of skin involving drainage from surgical wound Tobacco use Surgical History Surgical History History of incision and drainage Family History Family History Father Diabetes mellitus Mother Breast cancer Social History Social History Smoking status: Current every day smoker Additional smoking assessment comments: 1/2 ppd Alcohol intake: current Alcohol use details: rarely Substance use: former Substance use type: methamphetamine Gender identity (if verbalized by the patient): Female Sexual Orientation (if Verbalized by the Patient): Straight or Heterosexual Spiritual care concerns: No Comments At the time of my signature, I reviewed and agree with the nursing past medical, surgical, social, and family history. There is no relevant family history pertinent to the patient complaint. Exam Const: General: cooperative, no acute distress, alert and awake Orientation/consciousness: oriented to person, oriented to place and oriented to time HENMT: Head: normal to inspection Mouth: Yes moist mucous membranes Resp: Effort & Inspection: normal respiratory effort and able to speak in complete sentences Auscultation: clear to auscultation bilaterally, no crackles, no rales, no rhonchi and no wheezes Cardio: Palpation: normal PMI Rate: regular rate Rhythm: regular rhythm Heart sounds: S1 normal heart sound present and S2 normal heart sound present GI: GI Palp: No abdominal tenderness, Yes Soft to palpation, No Tenderness to palpation present (GI) and No Guarding due to palpation present (GI) Auscultation: normal bowel sounds Neuro: General: oriented to person, oriented to place and oriented to time Cranial nerves: Yes CN's II-XII intact bilaterally Psych: Appearance: grossly normal Thought process: Normal thought process present Insight: Good insight present (Psych) Judgement: Good judgement present (Psych) Course Course Level of Care: Express Care Visit Vital Signs Vital signs: Vital Signs Temperature 98.0 F 05/05/24 17:04 Pulse Rate 109 H 05/05/24 17:04 Respiratory Rate 16 05/05/24 17:04 Blood Pressure 155/94 H 05/05/24 17:04 Pulse Oximetry 100 05/05/24 17:04 Oxygen Delivery Room Air 05/05/24 17:04 Temperature 98.0 F 05/05/24 17:04 Pulse Rate 109 H 05/05/24 17:04 Respiratory Rate 16 05/05/24 17:04 Blood Pressure 155/94 H 05/05/24 17:04 Pulse Oximetry 100 05/05/24 17:04 Oxygen Delivery Room Air 05/05/24 17:04 Reviewed MDM - URI/Sore Throat MDM Narrative Medical decision making narrative: Negative COVID, negative flu. Symptoms consistent with gastroenteritis. Treat as such. Patient is nontoxic appearing. Stable for discharge home. Supportive care measures discussed. Discharge instructions reviewed with patient, as well as provided in writing per nursing staff. The instructions also include specific and strict return/GO TO THE ER as well as f/u information. All questions have been answered, and the patient deny any further questions with discharge and discharge plan. Some parts of this dictation were generated by voice recognition software and may contain typographical and/or grammatical inaccuracies. Differential Diagnosis Differential diagnosis: Likely other (Gastroenteritis, traveler's diarrhea) Medical Records Attestation: I reviewed the patient's medical records. Lab Data Attestation: I reviewed the patient's lab results. Discharge Plan Discharge Clinical Impression: Gastroenteritis Patient Disposition: Home, Self-Care Condition: Stable Instructions: Antibiotic Form, Gastroenteritis (ED) Patient Language: Portuguese Prescriptions: New albuterol sulfate [Ventolin HFA] 90 mcg/actuation HFA aerosol inhaler 2 puff inhalation QID PRN (Reason: shortness of breath or wheezing) Qty: 8.5 0RF ondansetron 4 mg tablet,disintegrating 4 mg PO Q8H PRN (Reason: nausea and vomiting) Qty: 10 0RF No Action albuterol sulfate 90 mcg/actuation HFA aerosol inhaler 2 puff INHALATION QID PRN (Reason: shortness of breath or wheezing) Qty: 8.5 0RF budesonide-formoterol [Symbicort] 160-4.5 mcg/actuation HFA aerosol inhaler 1 inh INHALATION DIRECTED (DME) Aerochamber MV Spacer See Rx Instructions .Route Qty: 1 0RF Rx Instructions: As directed Nuzyra 150 mg tablet See Rx Instructions .ROUTE .COMPLEX Qty: 8 0RF Rx Instructions: take 2 tablets (300 mg) by mouth twice daily on day 1; take 2 tablets (300 mg) once daily x 6 days albuterol sulfate [Ventolin HFA] 90 mcg/actuation HFA aerosol inhaler 2 puff inhalation QID PRN (Reason: shortness of breath or wheezing) Qty: 8.5 0RF Follow-up/Referrals: Jae,BRENDA Marte [Primary Care Provider] - 1 Week Stand Alone Forms: Work/School Release IP Time of Disposition: 17:59
== END 2024-05-05 18:08 | disposition home or self-care (01) ==
PROVIDERS: Emergency Provider Nurse Practitioner Family; PCP Physician Assistant
DX: K52.9 Noninfective gastroenteritis and colitis, unspecified (principal); F17.200 Nicotine dependence, unspecified, uncomplicated
CPT/HCPCS: 99213; G0463

== ENCOUNTER 2024-11-16 09:05 | Emergency (ER) | payer SELFPAY ==
[2024-11-16 09:21] VITALS: BP 151/99; PULSE 99; RESP 20; TEMP 36.8; O2SAT 100
--- NOTE | 2024-11-16 09:58 | ED_ITS ---
HPI - URI/Sore Throat General Chief Complaint: Upper Respiratory Infection Stated Complaint: Cough/Ears Irritation patient presents to Express Care with complaints wheezing, shortness of breath, cough, headaches, and pain in both ears that began last night. Patient reports history of asthma but is currently out her albuterol inhaler. Normally has worsening symptoms in the winter. Denies being around any triggers last night or yesterday during the day. No medication remedies attempted for symptoms. Denies fever, chills, body aches, runny nose, nasal congestion, dizziness, sore throat, nausea, vomiting, diarrhea. Related Data Allergies Allergy/AdvReac Type Severity Reaction Status Date / Time venom-honey bee Allergy Severe Anaphylaxis Verified 11/16/24 09:37 banana Allergy Intermediate Itching Verified 11/16/24 09:37 amoxicillin Allergy Mild Rash Verified 11/16/24 09:37 cephalexin Allergy Mild Rash Verified 11/16/24 09:37 latex Allergy Mild Rash Verified 11/16/24 09:37 levofloxacin Allergy Mild Rash Verified 11/16/24 09:37 morphine AdvReac Hypotension Verified 11/16/24 09:37 Review of Systems Constitutional: Constitutional: Reports as per HPI, Denies chills, Denies fatigue, Denies fever(s) and Denies weakness Eyes: Eyes: Reports no additional eye complaints ENT: Reports as per HPI, Denies dysphagia, Denies vertigo, Denies dizziness, Denies epistaxis, Denies nasal congestion and Denies sore throat Comments: Bilateral ear pain Cardiovascular: Cardiovascular: Reports no additional cardiovascular complaints Respiratory: Respiratory: Reports as per HPI, Reports chest congestion, Reports cough, Reports dyspnea and Reports wheezing Gastrointestinal: Gastrointestinal: Reports no additional gastrointestinal complaints Genitourinary: Genitourinary: Reports no additional female genitourinary complaints Musculoskeletal: Musculoskeletal: Reports no additional musculoskeletal complaints Neurologic: Reports as per HPI, Denies vertigo, Denies dizziness and Denies headache(s) Psychiatric: Psychiatric: Reports no additional psychiatric complaints Endocrine: Endocrine: Reports no additional endocrine complaints Hematologic/Lymphatic: Hematologic/Lymphatic: Reports no additional hematologic/lymphatic complaints Allergic/Immunologic: Allergic/Immunologic: Reports no additional rochelle rgic/immunologic complaints PMFSH Past Medical History Medical History Methamphetamine abuse Postoperative complication of skin involving drainage from surgical wound Tobacco use Surgical History Surgical History History of incision and drainage Family History Family History Father Diabetes mellitus Mother Breast cancer Social History Social History Smoking status: Current every day smoker Additional smoking assessment comments: 1/2 ppd Alcohol intake: current Alcohol use details: rarely Substance use: former Substance use type: methamphetamine Gender identity (if verbalized by the patient): Female Sexual Orientation (if Verbalized by the Patient): Straight or Heterosexual Spiritual care concerns: No Exam Const: General: healthy appearing and no acute distress Nutritional Appearance: well nourished Orientation/consciousness: patient oriented x3 Limitations: no limitations HENMT: Head: normal to inspection Ears: external ears normal and TM's normal bilaterally Face/Nose/Sinus: Normal external nose present Face and sinus: normal facial exam and sinuses nontender Mouth: Yes Normal oral and palatal mucosa present Throat: posterior oropharynx normal Neck: Neck: normal visual inspection and no lymphadenopathy Resp: Effort & Inspection: uses accessory muscles Auscultation: wheezes expiratory wheezes and throughout and diminished lung sounds Other: after DuoNeb treatment. effort and inspection normal, auscultation normal no wheezing noted. Cardio: Rate: regular rate Rhythm: regular rhythm Skin: General skin exam: normal color Rashes: no rashes Wounds: no wounds Neuro: General: patient oriented x3 Speech: normal speech Gait exam (Neuro): Normal gait present Psych: Mental Status: mental status grossly normal Affect: normal affect Attitude: cooperative Course Course Level of Care: Express Care Visit Vital Signs Vital signs: Vital Signs Temperature 98.2 F 11/16/24 09:21 Pulse Rate 99 11/16/24 09:21 Respiratory Rate 20 11/16/24 09:21 Blood Pressure 151/99 H 11/16/24 09:21 Pulse Oximetry 100 11/16/24 09:21 Oxygen Delivery Room Air 11/16/24 09:21 Temperature 98.2 F 11/16/24 09:21 Pulse Rate 99 11/16/24 09:21 Respiratory Rate 20 11/16/24 09:21 Blood Pressure 151/99 H 11/16/24 09:21 Pulse Oximetry 100 11/16/24 09:21 Oxygen Delivery Room Air 11/16/24 09:21 MDM - URI/Sore Throat MDM Narrative Medical decision making narrative: DuoNeb given in clinic today. Will need albuterol inhaler and steroids. Patient declines Rodger Cherry. Discharge instructions reviewed with patient, as well as provided in writing per nursing staff. The instructions also include specific and strict return/GO TO THE ER as well as f/u information. All questions have been answered, and the patient deny any further questions with discharge and discharge plan. Differential Diagnosis Differential diagnosis: Likely upper respiratory infection, otitis media, sinusitis, viral infection, bronchitis, influenza and pharyngitis Medical Records Attestation: I reviewed the patient's medical records. Discharge Plan Discharge Clinical Impression: Asthma attack Patient Disposition: Home Condition: Improved Instructions: Antibiotic Form, Asthma (ED) Additional Instructions: take the prednisone as directed. Use [id number] cough cold medication as needed. Use your albuterol inhaler every 4 hours as needed for cough, wheezing, shortness of breath. Follow-up with primary care if symptoms not improved over the next couple days. Patient Language: Japanese Prescriptions: New prednisone 50 mg tablet 50 mg PO DAILY Qty: 5 0RF albuterol sulfate [Ventolin HFA] 90 mcg/actuation HFA aerosol inhaler 1 inh inhalation QID PRN (Reason: shortness of breath or wheezing) Qty: 8.5 0RF Follow-up/Referrals: Jae,BRENDA Marte [Primary Care Provider] - Time of Disposition: 10:37
[2024-11-16] MEDS: IPRATROPIUM 0.5 MG/ALBUTEROL SULFATE 2.5 MG AMPUL.NEB 3 ML INHALATION (10:13)
== END 2024-11-16 10:40 | disposition home or self-care (01) ==
PROVIDERS: Emergency Provider Nurse Practitioner Family; PCP Physician Assistant
DX: J45.909 Unspecified asthma, uncomplicated (principal); F17.200 Nicotine dependence, unspecified, uncomplicated
CPT/HCPCS: 94640; 99213; G0463

== ENCOUNTER 2025-03-13 10:31 | Emergency (ER) | payer SELFPAY ==
[2025-03-13 10:41] VITALS: BP 149/97; PULSE 91; RESP 18; TEMP 36.4; O2SAT 99
[2025-03-13 10:51] LABS: EDSTREPNEGPOS1 Negative (Negative)
--- NOTE | 2025-03-13 11:24 | ED_ITS ---
HPI - URI/Sore Throat General Chief Complaint: Upper Respiratory Infection Stated Complaint: Sore Throat Time Seen by Provider: 03/13/25 11:10 Source: patient and RN notes reviewed Mode of arrival: ambulatory Limitations: no limitations History of Present Illness HPI Narrative: 44-year-old female presents Express Care complaining of cough, congestion, body aches, chest congestion, sore throat for last 3 days. She denies any for fevers, chills, chest pain, difficulty breathing, nausea vomiting, diarrhea,, or any other upper respiratory symptoms or any other symptoms. Do a taking DayQuil and [place] Plus that with symptoms without relief. Patient reports a history as not, she says she stopped smoking 2 weeks ago. Related Data Allergies Allergy/AdvReac Type Severity Reaction Status Date / Time venom-honey bee Allergy Severe Anaphylaxis Verified 03/13/25 11:01 banana Allergy Intermediate Itching Verified 03/13/25 11:01 amoxicillin Allergy Mild Rash Verified 03/13/25 11:01 cephalexin Allergy Mild Rash Verified 03/13/25 11:01 latex Allergy Mild Rash Verified 03/13/25 11:01 levofloxacin Allergy Mild Rash Verified 03/13/25 11:01 morphine AdvReac Hypotension Verified 03/13/25 11:01 Review of Systems Review of Systems: CONSTITUTIONAL: Denies fever, chills, or sweats. Positive for body aches. EYES: Denies visual changes, redness, or discharge. ENT: Denies rhinorrhea, or otalgia. Positive for sore throat and congestion. CARDIOVASCULAR: Denies chest pain, palpitations, or edema. RESPIRATORY: Positive for cough. Negative for wheezing or dyspnea. GASTROINTESTINAL: Denies abdominal pain, nausea, vomiting, or diarrhea. GENITOURINARY: Denies dysuria or hematuria. SKIN: Denies rash or itching. MUSCULOSKELETAL: Denies back pain, joint pain, or myalgia. NEUROLOGIC: Denies headache, numbness, or weakness. PSYCHIATRIC: Denies anxiety or depression. All other systems reviewed are negative, except as documented in HPI. [facility] Past Medical History Medical History Postoperative complication of skin involving drainage from surgical wound Tobacco use Methamphetamine abuse Surgical History Surgical History History of incision and drainage Family History Family History Father Diabetes mellitus Mother Breast cancer Social History Social History Additional smoking assessment comments: 1/2 ppd Alcohol intake: current Alcohol use details: rarely Substance use: former Substance use type: methamphetamine Gender identity (if verbalized by the patient): Female Sexual Orientation (if Verbalized by the Patient): Straight or Heterosexual Spiritual care concerns: No Comments At the time of my signature, I reviewed and agree with the nursing past medical, surgical, social, and family history. There is no relevant family history pertinent to the patient complaint. Exam Narrative: GENERAL: This is a well-nourished, well-developed adult, in no apparent distress. They are non ill-appearing, nontoxic appearing. HEAD: normocephalic, atraumatic. EYES: Sclera clear/white. Conjunctiva normal. Vision is grossly intact. Extraocular movements intact EARS: External ears normal, auditory canals clear and without drainage, TMs normal without perforation. Hearing grossly intact. NOSE: External nose normal with no obvious nasal discharge, nasal turbinates erythematous, no rhinorrhea. THROAT: Mucous membranes moist, posterior pharynx erythematous. Uvula midline. Postnasal drip present. NECK: Neck supple, mild tender cervical lymphadenopathy, no masses or thyromegaly. CARDIOVASCULAR: Regular rate and rhythm without murmurs, gallops, or rubs. RESPIRATORY: Clear to auscultation. Breath sounds equal bilaterally. No wheezes, rales, or rhonchi. SKIN: warm, Dry, intact with no suspicious lesions or rash, good texture and turgor. NEURO: awake, alert, and oriented to person, place and time. There were no obvious focal neurologic abnormalities. EXTREMITIES: No joint tenderness, effusion, or edema noted. BACK: Nontender without deformity. Course Course Emergency Course: Portions of this record may have been created with voice recognition software Level of Care: Express Care Visit Vital Signs Vital signs: Vital Signs Temperature 97.6 F 03/13/25 10:41 Pulse Rate 91 03/13/25 10:41 Respiratory Rate 18 03/13/25 10:41 Blood Pressure 149/97 H 03/13/25 10:41 Pulse Oximetry 99 03/13/25 10:41 Oxygen Delivery Room Air 03/13/25 10:41 Temperature 97.6 F 03/13/25 10:41 Pulse Rate 91 03/13/25 10:41 Respiratory Rate 18 03/13/25 10:41 Blood Pressure 149/97 H 03/13/25 10:41 Pulse Oximetry 99 03/13/25 10:41 Oxygen Delivery Room Air 03/13/25 10:41 Reviewed MDM - URI/Sore Throat MDM Narrative Medical decision making narrative: Rapid strep negative. A throat culture is pending. Symptoms likely viral in etiology. Given patient's smoking history, will give her prescription of prednisone, is benzonatate for cough. Patient requesting refill of her albuterol inhaler. New prescription sent. Discussed physical exam findings. Advised supportive measures and signs/symptoms to go to the ER. Pt is appropriate for outpt treatment and f/u. Differential Diagnosis Differential diagnosis: Likely upper respiratory infection, sinusitis, viral infection, bronchitis and pharyngitis Lab Data Attestation: I reviewed the patient's lab results. Labs: Lab Results 03/13/25 Range/Units 10:49 POC Grp A Strep Screen Negative (Negative) Critical Care Time Critical Care Time Critical Care Time: No Discharge Plan Discharge Clinical Impression: Bronchitis Patient Disposition: Home Condition: Stable Instructions: Antibiotic Form, Acute Bronchitis (ED) Additional Instructions: Your rapid strep swab was negative today at [facility]. You will be notified in a few days if the culture comes back positive for strep, and appropriate antibiotics will be called in for you at that time. Is likely a viral illness, viral illnesses last usually 7-10 days. Antibiotics are ineffective to viruses virus will after run their course. Take prednisone as directed Recommend [facility] for congestion. Take benzonatate tablets as needed for cough. Use your inhaler as needed for wheezing or shortness of breath. You may take ibuprofen 600 mg to 800 mg every 6-8 hours. Do not exceed more than 800 mg of ibuprofen per dose. Do not exceed more than 3200 mg ibuprofen in a day. You may take up to 1000 mg Tylenol every 6-8 hours. Do not exceed 1000 mg per dose, do exceed more than 4000 mg of Tylenol in a day. Symptomatic treatment includes: rest, fluids, and increase humidity of the air at home. Follow up with your primary care provider 3-5 days Go to the ER for any breathing problems, fevers, nausea, vomiting, chest pain, or any worsening symptoms, or any serious concerns. Patient Language: New Zealander Prescriptions: New benzonatate 200 mg capsule 200 mg PO TID PRN (Reason: cough) Qty: 20 0RF prednisone 20 mg tablet 40 mg PO DAILY 5 Days Qty: 10 0RF albuterol sulfate [Ventolin HFA] 90 mcg/actuation HFA aerosol inhaler 2 puff inhalation QID PRN (Reason: shortness of breath or wheezing) Qty: 8.5 0RF No Action albuterol sulfate [Ventolin HFA] 90 mcg/actuation HFA aerosol inhaler 1 inh inhalation QID PRN (Reason: shortness of breath or wheezing) Qty: 8.5 0RF Follow-up/Referrals: Jae,BRENDA Marte [Primary Care Provider, Family Practice] Stand Alone Forms: Work/School Release IP Time of Disposition: 11:22
== END 2025-03-13 11:29 | disposition home or self-care (01) ==
PROVIDERS: PCP Physician Assistant
DX: J40 Bronchitis, not specified as acute or chronic (principal); Z87.891 Personal history of nicotine dependence
CPT/HCPCS: 87081; 87880; 99213; G0463